=== PATIENT | female | born 1975 | race Caucasian/White ===

== ENCOUNTER → 2018-01-05 | Outpatient (CLI) | payer BC ==
[2016-10-03 09:34] VITALS: BP 105/61
--- NOTE | 2018-01-05 11:54 | MRI ---
MRI lumbar spine without contrast Indication: Lower back pain Technique: Multisequence, multiplanar MR images of the lumbar spine were obtained without IV contrast . Comparison: None Findings: Hemangiomas within the T12 and S1 vertebral bodies are noted. Remaining visualized marrow s ignal and vertebral body heights/alignment are normal. No acute fracture, subluxation or suspicious o sseous lesion is identified. The conus terminates normally at L1. The cauda equina is unremarkable. T he visualized paraspinal soft tissues demonstrate no gross unexpected findings. T12-L1, L1-L2, L2-L3: Unremarkable L3-L4: Very mild facet arthropathy. Otherwise, unremarkable. L4-L5: Very mild broad-based disc bulge and facet arthropathy without significant canal or foraminal stenosis. L5-S1: Very mild facet arthropathy. Otherwise, unremarkable. Impression: Very mild degenerative changes of the lower lumbosacral spine without high-grade canal or neural fora rosalino compromise identified at any level. Reported By:
== END ==
LOC: RAD 09:34
PROVIDERS: ATTEND Internal Medicine
DX: M54.5 Low back pain (principal); M54.31 Sciatica, right side
CPT/HCPCS: 72148